=== PATIENT | female | born 1960 | race Two or more races ===

== ENCOUNTER 2019-11-03 17:23 | Emergency (ER) | payer SELFPAY ==
[~2019-11-03] VITALS: Ht 157.5 cm; Wt 69.4 kg
[2019-11-03 18:22] VITALS: BP 127/63
== END 2019-11-03 18:12 | disposition home or self-care (01) ==
LOC: ER 17:23
DX: M79.604 Pain in right leg (principal)
CPT/HCPCS: 93971; 99284; J7030